=== PATIENT | male | born 1960 | race Two or more races ===

== ENCOUNTER 2020-08-30 06:23 | Day surgery (SDC) | payer OTHER ==
[~2020-08-30 06:23] MED LIST: RELAFEN500 MG PO
== END 2020-08-30 13:45 | disposition home or self-care (01) ==
LOC: CIR.AMB 06:23
PROVIDERS: ATTEND Orthopaedic Surgery
DX: M75.122 Complete rotator cuff tear or rupture of left shoulder, not specified as traumatic (principal); M75.22 Bicipital tendinitis, left shoulder; Z20.828 Contact with and (suspected) exposure to other viral communicable diseases